=== PATIENT | female | born 1985 | race Caucasian/White ===

== ENCOUNTER 2021-01-15 18:25 | Emergency (ER) | payer BC, OTHER ==
[2021-01-15 19:45] VITALS: BP 130/88; PULSE 78; TEMP 98.3; BMI 30.2
[2021-01-15] MEDS ORDERED: KETOROLAC TROMETHAMINE 60 MG/2 ML VIAL IM ONE (20:27)
[2021-01-15] MEDS ORDERED: KETOROLAC TROMETHAMINE 30 MG/1 ML VIAL ONE (20:44)
== END 2021-01-15 21:34 | disposition home or self-care (01) ==
LOC: JERFT 18:25 → JER 18:25 → JERFT 21:34
PROC: 3E0233Z Introduction of Anti-inflammatory into Muscle, Percutaneous Approach (ICD-10-PCS; principal; 2021-01-15)
DX: M72.2 Plantar fascial fibromatosis (principal)
CPT/HCPCS: 99284-25